=== PATIENT | female | born 1955 | race Caucasian/White ===

== ENCOUNTER → 2024-08-28 | Outpatient (CLI) | payer MEDICARE, BC, SELFPAY ==
--- NOTE | 2024-08-28 09:30 | XR_ITS ---
Examination: Screening digital mammography, bilateral Computer aided detection 3-D breast Tomosynthesis, bilateral Date and time of exam: August 28, 2024 0929 hours Compared to mammograms dating to November 04, 2002 Indication: Screening Technique: Nonmagnified MLO, CC views of the breasts to been obtained, reconstructed from 3-D Tomosynthesis images. R2 computer aided detection program utilized for evaluation of suspicious masses and/or abnormal calcifications. 3-D Tomosynthesis images obtained. Findings: The breasts are extremely dense, which limits the sensitivity of mammography Benign calcifications. No suspicious masses Impression: BI-RADS category II: Benign Findings. Recommend 1 year follow-up mammogram. Given the extremely dense breast architecture, consider baseline bilateral breast sonography follow-up
== END | disposition home or self-care (01) ==
PROVIDERS: PCP Family Medicine; Referring Provider Family Medicine; Visit Provider Family Medicine
DX: Z12.31 Encounter for screening mammogram for malignant neoplasm of breast (principal); R92.323 Mammographic fibroglandular density, bilateral breasts; R92.1 Mammographic calcification found on diagnostic imaging of breast
CPT/HCPCS: 77063; 77067

== ENCOUNTER → 2024-09-11 | Outpatient (CLI) | payer MEDICARE, BC, SELFPAY ==
--- NOTE | 2024-09-11 15:45 | XR_ITS ---
Examination: Breast ultrasound complete, bilateral Date and time of exam: September 11, 2024 1555 hours INDICATIONS: Palpable lumps in the breast one year Technique: Real-time grayscale ultrasonographic imaging bilateral breasts, including all 4 quadrants as well as nipple retroareolar and axillary regions. Findings: No cystic or solid mass IMPRESSION: BI-RADS Category 1: Negative study No masses in either breast
== END | disposition home or self-care (01) ==
LOC: CDIM 15:27
PROVIDERS: PCP Family Medicine; Referring Provider Family Medicine; Visit Provider Family Medicine
DX: N63.10 Unspecified lump in the right breast, unspecified quadrant (principal)
CPT/HCPCS: 76641

== ENCOUNTER → 2025-04-08 | Outpatient (CLI) | payer MEDICARE, BC, SELFPAY ==
[2025-04-08 17:00] LABS: Albumin, Serum 4.7 gm/dL (3.4-4.8); Anion Gap 8 (7-16); BUN/Creatinine Ratio 10 Ratio (12-20); Blood Urea Nitrogen 10 mg/dL (9-23); Calcium 9.6 mg/dL (8.3-10.6); Calcium (Corrected) 9.6 mg/dL (8.5-10.1); Carbon Dioxide 25.9 mMol/L (20.0-31.0); Chloride 100 mMol/L (98-107); Creatinine (Component) 1.0 mg/dL (0.6-1.3); Glucose 110 mg/dL (74-106); Osmolality,Calculated 268 (275-295); Phosphorous 4.5 mg/dL (2.4-5.1); Potassium 4.6 mMol/L (3.4-5.1); Sodium 134 mMol/L (136-145); eGFR > 60 See Note
== END | disposition home or self-care (01) ==
LOC: COPL 16:03
PROVIDERS: PCP Family Medicine; Referring Provider Internal Medicine Cardiovascular Disease; Visit Provider Internal Medicine Cardiovascular Disease
DX: I26.99 Other pulmonary embolism without acute cor pulmonale (principal)
CPT/HCPCS: 36415; 80069

== ENCOUNTER → 2025-04-09 | Outpatient (CLI) | payer MEDICARE, BC, SELFPAY ==
--- NOTE | 2025-04-09 09:27 | XR_ITS ---
Examination: CTA chest with intravenous contrast 2-D reconstructions 3-D reconstructions, vascular Date and time of exam: April 09, 2025, 0945 hours INDICATIONS: Intermittent chest pain shortness of breath 1 month, clinical diagnosis pulmonary emboli CTDI: vol (mGy) 6.96 DLP: (mGycm) 180 Technique: Multiple axial sections of the thorax have been obtained. 3 mm slice thickness, from below the hemidiaphragms to above the apices of the lungs. Mediastinal and lung density settings have been obtained. 2-D sagittal and coronal reconstructions. 3-D angiographic renderings, 3-D volume renderings, 3D post processing, vascular maximum intensity projections obtained. Contrast administered is 100 cc Isovue-[id number]. Low dose protocols were performed. One or more of the following dose reduction techniques were used; automated exposure control, adjustment of the mA and/or KV according to patient size, use of iterative reconstruction technique. Findings: No thoracic aortic aneurysmal dilatation or dissection Pulmonary artery segments are not enlarged. No pulmonary artery filling defects No mediastinal lymphadenopathy 5 mm pulmonary nodule left lower lobe image 229 No lobar pneumonia or pulmonary edema No liver or splenic lesion Pancreatic calcifications Moderate osteopenia IMPRESSION: Negative for pulmonary artery emboli 5 mm pulmonary nodule left lower lobe, with the studies baseline recommend 6-month follow-up CT chest without contrast
== END | disposition home or self-care (01) ==
LOC: SCAT 09:08
PROVIDERS: Referring Provider Internal Medicine Cardiovascular Disease; Visit Provider Internal Medicine Cardiovascular Disease
DX: R91.1 Solitary pulmonary nodule (principal)
CPT/HCPCS: 71275; A4649; Q9967

== ENCOUNTER → 2025-05-29 | Outpatient (CLI) | payer MEDICARE, BC, SELFPAY ==
[2025-06-03 06:32] LABS: Aldosterone* 7 ng/dL; Renin Activity, Plasma* 1.16 ng/mL/h (0.25-5.82)
== END | disposition home or self-care (01) ==
LOC: COPL 12:38
PROVIDERS: PCP Family Medicine; Referring Provider Internal Medicine Cardiovascular Disease; Visit Provider Internal Medicine Cardiovascular Disease
DX: I10 Essential (primary) hypertension (principal); I15.0 Renovascular hypertension
CPT/HCPCS: 36415; 82088; 84244

== ENCOUNTER → 2025-06-16 | Outpatient (CLI) | payer MEDICARE, BC, SELFPAY ==
--- NOTE | 2025-06-16 08:45 | XR_ITS ---
EXAMINATION: Renal sonography Renal Doppler sonographic assessment renal arteries Date and time: June 16, 2025, 0911 hours INDICATIONS: Diagnosis hypertension TECHNIQUE AND FINDINGS: Sonographic images kidneys Assessment Doppler analysis peak systolic arterial velocities calculation of resistive indices and renal aorta ratios Right kidney 8.3 cm left kidney 8.3 cm No elevation of peak systolic velocities Normal resistive indices Normal renal aorta ratios IMPRESSION: Small kidneys, no hydronephrosis or renal calculi No Doppler sonographic findings of renal artery stenosis
== END | disposition home or self-care (01) ==
PROVIDERS: PCP Family Medicine; Referring Provider Internal Medicine Cardiovascular Disease; Visit Provider Internal Medicine Cardiovascular Disease
DX: N27.1 Small kidney, bilateral (principal)
CPT/HCPCS: 93975